=== PATIENT | female | born 2000 | race Two or more races ===

== ENCOUNTER → 2023-07-25 | Outpatient (CLI) | payer OTHER ==
[~2023-07-25] MED LIST: ISOVUE-370 76% 100ML VIAL As Ordered ONE
== END ==
LOC: M RAD 17:27
PROVIDERS: ATTEND Physician Assistant
DX: R22.1 Localized swelling, mass and lump, neck (principal)
CPT/HCPCS: 70491; Q9967

== ENCOUNTER 2024-07-17 21:23 | Outpatient (CLI) | payer OTHER ==
[~2024-07-17] VITALS: Ht 170.2 cm; Wt 96.1 kg
[2024-07-17] MEDS ORDERED: PRENTAB9 PO (21:30)
[2024-07-17 21:36] VITALS: BP 134/79; O2SAT 96
[2024-07-17] MEDS ORDERED: NIFE1TAB51 PO (21:41)
[2024-07-17] MEDS ORDERED: HOME MED LIST COMPLETE! XX SCH (22:05)
[2024-07-17] MEDS: LR 800 ML IV ONE (22:24)
[2024-07-17 22:53] LABS: KETONE, URINE AUTO RFX NEGATIVE (NEGATIVE); LEUKOCYTE ESTERASE UR AUTO RFX NEGATIVE (NEGATIVE); NITRITE, URINE AUTO RFX NEGATIVE (NEGATIVE); RBC, URINE AUTO RFX 0 /HPF (0-3); SQUAM EPITHELIAL CELL UR AURFX 1 /HPF (0-6); WBC, URINE AUTO RFX 1 /HPF (0-3)
[2024-07-17 23:25] VITALS: BP 123/60
[2024-07-17] MEDS: TERBUTALINE SULFATE 1 MG/ML 1ML VIAL SC ONE (23:26)
[2024-07-19 11:27] LABS: Candida species NOT DETECTED (NOT DETECTED); Gardnerella vaginalis NOT DETECTED (NOT DETECTED); Trichamonas vaginalis NOT DETECTED (NOT DETECTED)
== END 2024-07-18 00:33 | disposition home or self-care (01) ==
LOC: M LDO 21:23
PROVIDERS: ATTEND Obstetrics & Gynecology
DX: O36.8130 Decreased fetal movements, third trimester, not applicable or unspecified (principal); O26.833 Pregnancy related renal disease, third trimester; O16.3 Unspecified maternal hypertension, third trimester; R00.0 Tachycardia, unspecified; Z3A.32 32 weeks gestation of pregnancy
CPT/HCPCS: 59025; 81001; 87081; 87480; 87510; 87660; 96372; G0463; J3105

== ENCOUNTER 2024-09-06 14:19 | Inpatient (IN) | payer OTHER ==
[~2024-09-06] VITALS: Ht 170.2 cm; Wt 92.9 kg
[~2024-09-06 14:19] MED LIST changes: +ACET-897 PO; +ECOT81TA5 PO; +HOLTER MONITOR XX; -ISOVUE-370 76% 100ML VIAL As Ordered ONE; +MAGN400T33 PO; +NIFE1TAB51 PO; +NIFE60TA96 PO; +PRENTAB9 PO
[2024-09-06 17:15] LABS: BASO # 0.0 10^3/uL (0.0-0.2); BASO % 0.1 % (0.0-1.0); EOS # 0.0 10^3/uL (0.0-0.5); EOS % 0.2 % (0.0-3.0); LYMPH # 0.6 10^3/uL (1.5-5.0); LYMPH % 7.0 % (24.0-44.0); MONO # 0.3 10^3/uL (0.0-0.8); MONO % 3.6 % (2.0-8.0); NEUTROPHILS # 7.2 10^3/uL (1.5-8.5); NEUTROPHILS % 87.3 % (36.0-66.0); PLATELET COUNT, AUTOMATED 418 10^3/uL (150-450)
[2024-09-06 17:20] LABS: ERYTHROCYTE SEDIMENTATION RATE 78 mm/hr (0-20)
[2024-09-06 17:39] LABS: ALT/SGPT 28 U/L (7.0-40); AST/SGOT 30 U/L (<34); CALCIUM LEVEL 8.6 MG/DL (8.5-10.1); CARBON DIOXIDE LEVEL 22 MMOL/L (20-31); CHLORIDE LEVEL 110 MMOL/L (98-107); CREATININE FOR GFR 0.76 MG/DL (0.55-1.30); GLOMERULAR FILTRATION RATE > 90.0 (>60); POTASSIUM SERUM 4.0 MMOL/L (3.5-5.1); SODIUM LEVEL 142 MMOL/L (136-145)
[2024-09-06 17:59] LABS: C REACTIVE PROTEIN QUANTITATIV 29.27 MG/DL (<1.0)
[2024-09-06] MEDS: ACETAMINOPHEN 500 MG TAB PO ONE (19:05)
[2024-09-06] MEDS ORDERED: PERCOCET 5MG/325MG TAB PO PRN (19:50)
[2024-09-06] MEDS ORDERED: MORPHINE 4 MG/ML 1 ML VIAL IV PRN (19:50)
[2024-09-06] MEDS ORDERED: ONDANSETRON 4MG 2ML VIAL IV PRN (19:50)
[2024-09-06] MEDS: DOCUSATE SODIUM 100 MG CAPSULE PO SCH (21:55)
[2024-09-06] MEDS: PERCOCET 5MG/325MG TAB PO PRN (21:55)
[2024-09-06] MEDS: SIMETHICONE 80MG CHEW TAB PO PRN (22:03)
[2024-09-06] MEDS: KETOROLAC 30 MG/ML 1 ML VIAL IV SCH (22:20)
[2024-09-06] MEDS: PIPERACILLIN/TAZOBACTAM SOD 4.5 GM in DEXTROSE 5% (D5W) ADV/MINI-BAG 50 ML IV SCH (23:07)
[2024-09-07] VITALS (8 sets, daily range): BP systolic 124–150; BP diastolic 57–83; TEMP 97.4–100.2; O2SAT 96–98
[2024-09-07 07:26] LABS: PLATELET COUNT, AUTOMATED 366 10^3/uL (150-450)
[2024-09-07] MEDS: PRENATAL VITAMINS CHEWABLE TABLET PO SCH (09:44)
[2024-09-07] MEDS: CALCIUM CARBONATE 500 MG CHEW U/D PO PRN (21:22)
[2024-09-08] VITALS (8 sets, daily range): BP systolic 127–165; BP diastolic 59–76; TEMP 96.7–98.2; O2SAT 95–98
[2024-09-08] MEDS: NIFEdipine 30MG XL TAB PO SCH (09:55)
[2024-09-08] MEDS ORDERED: ISOVUE-370 76% 100 ML VIAL As Ordered ONE (12:04)
[2024-09-08 14:43] LABS: PLATELET COUNT, AUTOMATED 448 10^3/uL (150-450)
[2024-09-08 15:11] LABS: ALT/SGPT 20 U/L (7.0-40); AST/SGOT 24 U/L (<34); CALCIUM LEVEL 8.4 MG/DL (8.5-10.1); CARBON DIOXIDE LEVEL 25 MMOL/L (20-31); CHLORIDE LEVEL 104 MMOL/L (98-107); CREATININE FOR GFR 0.84 MG/DL (0.55-1.30); GLOMERULAR FILTRATION RATE > 90.0 (>60); POTASSIUM SERUM 4.4 MMOL/L (3.5-5.1); SODIUM LEVEL 140 MMOL/L (136-145)
[2024-09-08] MEDS: ACETAMINOPHEN 500 MG TAB PO PRN (16:25)
[2024-09-09] VITALS (12 sets, daily range): BP systolic 122–149; BP diastolic 56–75; O2SAT 96–100
[2024-09-09 07:15] LABS: BASO # 0.0 10^3/uL (0.0-0.2); BASO % 0.2 % (0.0-1.0); EOS # 0.2 10^3/uL (0.0-0.5); EOS % 1.9 % (0.0-3.0); LYMPH # 1.3 10^3/uL (1.5-5.0); LYMPH % 14.9 % (24.0-44.0); MONO # 0.4 10^3/uL (0.0-0.8); MONO % 4.3 % (2.0-8.0); NEUTROPHILS # 6.7 10^3/uL (1.5-8.5); NEUTROPHILS % 78.2 % (36.0-66.0); PLATELET COUNT, AUTOMATED 439 10^3/uL (150-450)
[2024-09-09] MEDS ORDERED: LIDOCAINE 1% MDV 20 ML VIAL As Ordered ONE (14:44)
[2024-09-10] VITALS (8 sets, daily range): BP systolic 127–145; BP diastolic 58–74; TEMP 98.7–100.7; O2SAT 96–97
[2024-09-10] MEDS ORDERED: VANCOMYCIN HCL 1,000 MG, VIAL MATE ADAPTER 1 EACH in NS 250 ML IV SCH (07:40)
[2024-09-10] MEDS: VANCOMYCIN HCL 2,000 MG, VIAL MATE ADAPTER 1 EACH in NS 500 ML IV ONE (08:55)
[2024-09-10] MEDS ORDERED: HOME MED LIST COMPLETE! XX SCH (10:15)
[2024-09-10 16:16] LABS: C REACTIVE PROTEIN QUANTITATIV 34.27 MG/DL (<1.0)
[2024-09-10] MEDS: VANCOMYCIN HCL 1,000 MG, VIAL MATE ADAPTER 1 EACH in NS 250 ML IV SCH (17:47)
[2024-09-11] VITALS (9 sets, daily range): BP systolic 103–145; BP diastolic 58–74; O2SAT 90–99
[2024-09-11 00:40] LABS: KETONE, URINE AUTO RFX NEGATIVE (NEGATIVE); LEUKOCYTE ESTERASE UR AUTO RFX 2+ (NEGATIVE); MUCUS, URINE RFX SMALL (NEGATIVE); NITRITE, URINE AUTO RFX NEGATIVE (NEGATIVE); RBC, URINE AUTO RFX 1 /HPF (0-3); SQUAM EPITHELIAL CELL UR AURFX 1 /HPF (0-6); TRANSITIONAL EPITHELIAL AU RFX 1 /HPF; WBC, URINE AUTO RFX 15 /HPF (0-3)
[2024-09-11 08:27] LABS: BASO # 0.0 10^3/uL (0.0-0.2); BASO % 0.5 % (0.0-1.0); EOS # 0.3 10^3/uL (0.0-0.5); EOS % 3.2 % (0.0-3.0); LYMPH # 1.6 10^3/uL (1.5-5.0); LYMPH % 19.3 % (24.0-44.0); MONO # 0.4 10^3/uL (0.0-0.8); MONO % 5.0 % (2.0-8.0); NEUTROPHILS # 5.7 10^3/uL (1.5-8.5); NEUTROPHILS % 69.3 % (36.0-66.0); PLATELET COUNT, AUTOMATED 541 10^3/uL (150-450)
[2024-09-11 08:56] LABS: VANCOMYCIN LEVEL TROUGH 12.4 UG/ML (10.0-20.0)
[2024-09-11 08:57] LABS: ALT/SGPT 12 U/L (7.0-40); AST/SGOT 18 U/L (<34); CALCIUM LEVEL 8.0 MG/DL (8.5-10.1); CARBON DIOXIDE LEVEL 24 MMOL/L (20-31); CHLORIDE LEVEL 108 MMOL/L (98-107); CREATININE FOR GFR 0.85 MG/DL (0.55-1.30); GLOMERULAR FILTRATION RATE > 90.0 (>60); POTASSIUM SERUM 4.0 MMOL/L (3.5-5.1); SODIUM LEVEL 143 MMOL/L (136-145)
[2024-09-11 23:29] LABS: BASO # 0.0 10^3/uL (0.0-0.2); BASO % 0.3 % (0.0-1.0); EOS # 0.2 10^3/uL (0.0-0.5); EOS % 2.4 % (0.0-3.0); LYMPH # 1.9 10^3/uL (1.5-5.0); LYMPH % 20.3 % (24.0-44.0); MONO # 0.4 10^3/uL (0.0-0.8); MONO % 4.3 % (2.0-8.0); NEUTROPHILS # 6.5 10^3/uL (1.5-8.5); NEUTROPHILS % 69.0 % (36.0-66.0)
[2024-09-11 23:30] LABS: PLATELET COUNT, AUTOMATED 675 10^3/uL (150-450)
[2024-09-12] VITALS (8 sets, daily range): BP systolic 118–151; BP diastolic 58–77; O2SAT 94–100
[2024-09-12 00:08] LABS: ALT/SGPT 14 U/L (7.0-40); AST/SGOT 20 U/L (<34); C REACTIVE PROTEIN QUANTITATIV 24.12 MG/DL (<1.0); CALCIUM LEVEL 8.6 MG/DL (8.5-10.1); CARBON DIOXIDE LEVEL 23 MMOL/L (20-31); CHLORIDE LEVEL 108 MMOL/L (98-107); CREATININE FOR GFR 0.86 MG/DL (0.55-1.30); GLOMERULAR FILTRATION RATE > 90.0 (>60); POTASSIUM SERUM 4.2 MMOL/L (3.5-5.1); SODIUM LEVEL 143 MMOL/L (136-145)
[2024-09-12] MEDS: IBUPROFEN 800 MG TAB PO PRN (14:26)
[2024-09-12] MEDS: BACTRIM 160MG/800MG DS TAB PO SCH (17:12)
[2024-09-12] MEDS: AUGMENTIN 875 MG TAB PO SCH (21:38)
[2024-09-13 02:12] VITALS: BP 118/59; O2SAT 95
[2024-09-13 06:16] VITALS: BP 118/70; O2SAT 96
[2024-09-13] MEDS ORDERED: OXYC-517 PO ×2 (08:04→10:40)
[2024-09-13] MEDS ORDERED: LINE1TAB6 PO (08:04)
[2024-09-13] MEDS ORDERED: AMOX875T2 PO (08:04)
[2024-09-13] MEDS ORDERED: IBUP80TA PO (08:04)
[2024-09-13] MEDS: LINEZOLID 600 MG TABLET PO SCH (08:45)
[2024-09-13 08:47] VITALS: BP 139/75
[2024-09-13 10:13] VITALS: BP 140/63; O2SAT 97
== END 2024-09-13 10:58 | disposition home or self-care (01) | DRG 776 ==
LOC: M ED 14:19 → M ED INP 19:46 → M OBS 21:35
PROVIDERS: ADMIT Advanced Practice Midwife; ATTEND Advanced Practice Midwife
PROC: 0W9G3ZZ Drainage of Peritoneal Cavity, Percutaneous Approach (ICD-10-PCS; principal; 2024-09-09 15:00)
PROC: B246ZZZ Ultrasonography of Right and Left Heart (ICD-10-PCS; 2024-09-11)
DX: O90.2 Hematoma of obstetric wound (principal); O10.03 Pre-existing essential hypertension complicating the puerperium; Z79.899 Other long term (current) drug therapy

== ENCOUNTER 2024-09-27 13:58 | Inpatient (IN) | payer OTHER ==
[~2024-09-27] VITALS: Ht 170.2 cm; Wt 85.7 kg
[~2024-09-27 13:58] MED LIST changes: +AMOX875T2 PO; +IBUP80TA PO; +LINE1TAB6 PO; +OXYC-517 PO
[2024-09-27] MEDS: NS (Normal Saline) 0.9% 1,000 ML IV ONE (17:15)
[2024-09-27 17:17] LABS: VENOUS BASE EXCESS -1.5 (-2.0-2.0); VENOUS HCO3 24.0 MMOL/L (23.0-27.0); VENOUS O2 SATURATION 93.5 % (60.0-80.0); VENOUS PARTIAL PRESSURE CO2 43.1 mmHg (38.0-50.0); VENOUS PARTIAL PRESSURE O2 74.2 mmHg (30.0-50.0); VENOUS PH 7.363 UNITS (7.330-7.430); VENOUS STANDARD HCO3 23.1 MMOL/L; VENOUS TOTAL CO2 25.3 MMOL/L (24.0-28.0)
[2024-09-27] MEDS ORDERED: ISOVUE-370 76% 100 ML VIAL As Ordered ONE (17:19)
[2024-09-27 17:31] LABS: BASO # 0.0 10^3/uL (0.0-0.2); BASO % 0.4 % (0.0-1.0); EOS # 0.2 10^3/uL (0.0-0.5); EOS % 2.2 % (0.0-3.0); LYMPH # 2.3 10^3/uL (1.5-5.0); LYMPH % 33.0 % (24.0-44.0); MONO # 0.3 10^3/uL (0.0-0.8); MONO % 4.3 % (2.0-8.0); NEUTROPHILS # 4.1 10^3/uL (1.5-8.5); NEUTROPHILS % 59.8 % (36.0-66.0); PLATELET COUNT, AUTOMATED 554 10^3/uL (150-450)
[2024-09-27 17:35] LABS: ERYTHROCYTE SEDIMENTATION RATE 26 mm/hr (0-20)
[2024-09-27 17:40] LABS: INR 0.96
[2024-09-27 17:42] LABS: KETONE, URINE AUTO RFX NEGATIVE (NEGATIVE); LEUKOCYTE ESTERASE UR AUTO RFX NEGATIVE (NEGATIVE); NITRITE, URINE AUTO RFX NEGATIVE (NEGATIVE); RBC, URINE AUTO RFX 0 /HPF (0-3); SQUAM EPITHELIAL CELL UR AURFX 0 /HPF (0-6); WBC, URINE AUTO RFX 2 /HPF (0-3)
[2024-09-27 17:55] LABS: C REACTIVE PROTEIN QUANTITATIV < 0.50 MG/DL (<1.0)
[2024-09-27 17:56] LABS: CPK CREATINE PHOSPHOKINASE 48 U/L (34-145)
[2024-09-27 18:12] LABS: ALT/SGPT 16 U/L (7.0-40); AST/SGOT 18 U/L (<34); CALCIUM LEVEL 10.1 MG/DL (8.5-10.1); CARBON DIOXIDE LEVEL 25 MMOL/L (20-31); CHLORIDE LEVEL 106 MMOL/L (98-107); CK-MB VALUE MASS < 1.0 NG/ML (<3.6); CREATININE FOR GFR 0.89 MG/DL (0.55-1.30); FREE T4 1.30 NG/DL (0.89-1.76); GLOMERULAR FILTRATION RATE > 90.0 (>60); MAGNESIUM LEVEL 1.9 MG/DL (1.8-2.4); POTASSIUM SERUM 4.3 MMOL/L (3.5-5.1); SODIUM LEVEL 143 MMOL/L (136-145)
[2024-09-27 18:33] LABS: CK-MB VALUE MASS < 1.0 NG/ML (<3.6)
[2024-09-27 18:39] LABS: CPK CREATINE PHOSPHOKINASE 45 U/L (34-145)
[2024-09-27] MEDS ORDERED: IBUP80TA PO (19:09)
[2024-09-27] MEDS ORDERED: OXYC-517 PO (19:09)
[2024-09-27] MEDS ORDERED: HOME MED LIST COMPLETE! XX SCH (19:10)
[2024-09-27 21:46] VITALS: TEMP 97.5
[2024-09-27] MEDS: PIPERACILLIN/TAZOBACTAM SOD 4.5 GM in DEXTROSE 5% (D5W) ADV/MINI-BAG 50 ML IV SCH (21:54)
[2024-09-27] MEDS ORDERED: KETOROLAC 30 MG/ML 1 ML VIAL IV PRN (22:40)
[2024-09-27] MEDS ORDERED: MOM 30 ML SUSPENSION UDC PO PRN (23:55)
[2024-09-28] MEDS: VANCOMYCIN HCL 1,750 MG, VIAL MATE ADAPTER 1 EACH in NS 500 ML IV ONE (00:06)
[2024-09-28] MEDS: LR 1,000 ML IV SCH (00:55)
[2024-09-28 01:40] VITALS: BP 129/58; O2SAT 99
[2024-09-28 02:37] LABS: PLATELET COUNT, AUTOMATED 453 10^3/uL (150-450)
[2024-09-28 03:05] LABS: ALT/SGPT 15.0 U/L (7.0-40); AST/SGOT 16.0 U/L (<34); CALCIUM LEVEL 8.9 MG/DL (8.5-10.1); CARBON DIOXIDE LEVEL 24.0 MMOL/L (20-31); CHLORIDE LEVEL 108.0 MMOL/L (98-107); CREATININE FOR GFR 0.92 MG/DL (0.55-1.30); GLOMERULAR FILTRATION RATE 88.6 (>60); POTASSIUM SERUM 3.9 MMOL/L (3.5-5.1); SODIUM LEVEL 143.0 MMOL/L (136-145)
[2024-09-28] MEDS: ACETAMINOPHEN 325 MG TAB PO PRN (03:10)
[2024-09-28 06:07] LABS: BASO # 0.1 10^3/uL (0.0-0.2); BASO % 0.8 % (0.0-1.0); EOS # 0.3 10^3/uL (0.0-0.5); EOS % 4.2 % (0.0-3.0); LYMPH # 2.0 10^3/uL (1.5-5.0); LYMPH % 30.5 % (24.0-44.0); MONO # 0.4 10^3/uL (0.0-0.8); MONO % 5.6 % (2.0-8.0); NEUTROPHILS # 3.9 10^3/uL (1.5-8.5); NEUTROPHILS % 58.6 % (36.0-66.0); PLATELET COUNT, AUTOMATED 414 10^3/uL (150-450)
[2024-09-28 06:27] VITALS: BP 109/59; O2SAT 98
[2024-09-28 06:33] LABS: CALCIUM LEVEL 8.3 MG/DL (8.5-10.1); CARBON DIOXIDE LEVEL 23.0 MMOL/L (20-31); CHLORIDE LEVEL 109.0 MMOL/L (98-107); CREATININE FOR GFR 0.91 MG/DL (0.55-1.30); GLOMERULAR FILTRATION RATE 89.8 (>60); MAGNESIUM LEVEL 1.9 MG/DL (1.8-2.4); POTASSIUM SERUM 4.4 MMOL/L (3.5-5.1); SODIUM LEVEL 144.0 MMOL/L (136-145)
[2024-09-28] MEDS: VANCOMYCIN HCL 1,000 MG, VIAL MATE ADAPTER 1 EACH in NS 250 ML IV SCH (07:51)
[2024-09-28] MEDS: NIFEdipine 30 MG XL TAB PO SCH (07:52)
[2024-09-28] MEDS: DOCUSATE SODIUM 100 MG CAPSULE PO SCH (07:53)
[2024-09-28 10:00] VITALS: BP 121/64; O2SAT 98
[2024-09-28] MEDS: IBUPROFEN 800 MG TAB PO PRN (11:13)
[2024-09-28 14:00] VITALS: BP 135/64; O2SAT 98
[2024-09-28 18:00] VITALS: BP 127/66; O2SAT 99
[2024-09-28 22:14] VITALS: BP 126/71; O2SAT 97
[2024-09-29 01:59] VITALS: BP 106/64; O2SAT 98
[2024-09-29 06:38] VITALS: BP 114/54; O2SAT 98
[2024-09-29 07:05] LABS: VANCOMYCIN LEVEL TROUGH 16.0 UG/ML (10.0-20.0)
[2024-09-29 08:04] LABS: PLATELET COUNT, AUTOMATED 412 10^3/uL (150-450)
[2024-09-29 08:10] LABS: CALCIUM LEVEL 9.1 MG/DL (8.5-10.1); CARBON DIOXIDE LEVEL 23 MMOL/L (20-31); CHLORIDE LEVEL 108 MMOL/L (98-107); CREATININE FOR GFR 0.89 MG/DL (0.55-1.30); GLOMERULAR FILTRATION RATE > 90.0 (>60); MAGNESIUM LEVEL 1.7 MG/DL (1.8-2.4); POTASSIUM SERUM 4.3 MMOL/L (3.5-5.1); SODIUM LEVEL 142 MMOL/L (136-145)
[2024-09-29 10:04] VITALS: BP 112/59; O2SAT 99
[2024-09-29] MEDS: MAGNESIUM OXIDE 400 MG TAB PO SCH (11:40)
[2024-09-29 14:00] VITALS: BP 128/62; O2SAT 98
[2024-09-29 18:00] VITALS: BP 115/56; O2SAT 100
[2024-09-29] MEDS: ONDANSETRON 4MG ORAL DISINTEGRATING TAB PO PRN (19:29)
[2024-09-29] MEDS: LINEZOLID 600 MG TABLET PO SCH (20:12)
[2024-09-29] MEDS: AUGMENTIN 875 MG TAB PO SCH (20:12)
[2024-09-29 22:00] VITALS: BP 113/57; O2SAT 98
[2024-09-30 02:00] VITALS: BP 112/65; O2SAT 99
[2024-09-30 06:00] VITALS: BP 120/55; O2SAT 98
[2024-09-30 06:50] LABS: CALCIUM LEVEL 9.0 MG/DL (8.5-10.1); CARBON DIOXIDE LEVEL 26.0 MMOL/L (20-31); CHLORIDE LEVEL 107.0 MMOL/L (98-107); CREATININE FOR GFR 0.98 MG/DL (0.55-1.30); GLOMERULAR FILTRATION RATE 82.2 (>60); MAGNESIUM LEVEL 2.0 MG/DL (1.8-2.4); POTASSIUM SERUM 4.3 MMOL/L (3.5-5.1); SODIUM LEVEL 145.0 MMOL/L (136-145)
[2024-09-30] MEDS ORDERED: LINE1TAB6 PO (08:03)
[2024-09-30] MEDS ORDERED: AMOX875T2 PO (08:03)
[2024-09-30 09:09] VITALS: BP 119/57
[2024-09-30 10:00] VITALS: BP 117/61; O2SAT 98
[2024-09-30] MEDS ORDERED: FLUC150T9 PO (12:03)
[2024-09-30] MEDS ORDERED: BACT800T5 PO (12:53)
== END 2024-09-30 13:35 | disposition home or self-care (01) | DRG 776 ==
LOC: M ED 13:58 → M ED INP 09-28 01:12 → M OBS 09-28 01:36
PROVIDERS: ADMIT Obstetrics & Gynecology; ATTEND Advanced Practice Midwife
DX: O86.02 Infection of obstetric surgical wound, deep incisional site (principal); O10.03 Pre-existing essential hypertension complicating the puerperium; Z79.899 Other long term (current) drug therapy; O90.2 Hematoma of obstetric wound

== ENCOUNTER → 2024-11-19 | Outpatient (REF) | payer OTHER ==
[~2024-11-19] MED LIST changes: +BACT800T5 PO; +FLUC150T9 PO
== END ==
LOC: M SFHCWAGY 13:15
PROVIDERS: ATTEND Advanced Practice Midwife
DX: N93.9 Abnormal uterine and vaginal bleeding, unspecified (principal)

== ENCOUNTER → 2024-12-11 | Outpatient (CLI) | payer OTHER | LOC: M RAD 16:21 | PROVIDERS: ATTEND Advanced Practice Midwife | DX: N92.0 Excessive and frequent menstruation with regular cycle (principal) ==